=== PATIENT | female | born 1970 | race Caucasian/White ===

== ENCOUNTER → 2018-03-24 | Outpatient (CLI) | payer BC ==
--- NOTE | 2018-03-24 16:37 | CARD ---
MR#: [id number] Date of Study: 03/24/2018 Ordering Physician: HECTOR WALTERS, Referring Physician: HECTOR WALTERS, Tech: Blanquita Schuster APPROVED REPORT EXAM: Two-dimensional and M-mode echocardiogram with Doppler and color Doppler. Other Information Quality : AverageHR: 76bpm Rhythm : NSR INDICATION Mitral Valve Disease Non STEMI 2D DIMENSIONS RVDd1.9 (2.9-3.5cm)Left Atrium(2D)2.7 (1.6-4.0cm) IVSd0.7 (0.7-1.1cm)Aortic Root(2D)2.5 (2.0-3.7cm) LVDd4.0 (3.9-5.9cm)LVOT Diameter2.0 (1.8-2.4cm) PWd0.9 (0.7-1.1cm)LA Ivaplv99 (18-58mL) LVDs2.9 (2.5-4.0cm)FS (%) 27.5 % SV38.4 mlLVEF(%)60.0 (>50%) Aortic Valve AoV Peak Shawn.152.9cm/sAoV VTI31.5cm AO Peak GR.9.4mmHgLVOT Peak Shawn.140.0cm/s AO Mean GR.6mmHgAVA (VMAX)2.84cm2 Mitral Valve MV E Zwjgigmw21.5cm/sMV DECEL DILP341lh MV A Xnjsipun03.6cm/sE/A Ratio1.3 Tricuspid Valve TR P. Pnksrtcu584hv/sRAP XOBUISJV2tiVu TR Peak Gr.51teMwWKQR45loXf Pulmonary Vein S1 Nulialdq22.1cm/sD2 Bctrkvvm07.9cm/s PVa [id number] LEFT VENTRICLE The left ventricle is normal size. There is normal left ventricular wall thickness. The left ventricu lar systolic function is normal and the Ejection Fraction is 60%. There is normal LV segmental wall m otion. The left ventricular diastolic function and filling is normal for age. RIGHT VENTRICLE The right ventricle is normal size. There is normal right ventricular wall thickness. The right ventr icular systolic function is normal. ATRIA The left atrium size is normal. The right atrium size is normal. The interatrial septum is intact wit h no evidence for an atrial septal defect or patent foramen ovale as noted on 2-D or Doppler imaging. AORTIC VALVE The aortic valve is normal in structure and function. Doppler and Color Flow revealed no significant aortic regurgitation. There is no significant aortic valvular stenosis. MITRAL VALVE Mitral annular calcification is mild. The mitral valve is thickened but opens well. There is a very m ild prolapse of the posterior leaflet of the mitral valve. Doppler and Color-flow revealed trace to m ild mitral regurgitation. TRICUSPID VALVE The tricuspid valve is normal in structure and function. Doppler and Color Flow revealed trace tricus pid regurgitation. The PA pressure was estimated at 27 mmHg PULMONIC VALVE The pulmonary valve is normal in structure and function. Doppler and Color Flow revealed no pulmonic valvular regurgitation. GREAT VESSELS The aortic root is normal in size. The IVC is normal in size and collapses >50% with inspiration. PERICARDIAL EFFUSION There is no evidence of significant pericardial effusion. Critical Notification Critical Value: No <Conclusion> The left ventricular systolic function is normal and the Ejection Fraction is 60%. The left ventricular diastolic function and filling is normal for age. The left atrium size is normal. The right atrium size is normal. The aortic valve is normal in structure and function. Mitral annular calcification is mild. The mitral valve is thickened but opens well. There is a very mild prolapse of the posterior leaflet of the mitral valve. Doppler and Color-flow revealed trace to mild mitral regurgitation. Doppler and Color Flow revealed trace tricuspid regurgitation. The PA pressure was estimated at 27 m mHg The pulmonary valve is normal in structure and function. There is no evidence of significant pericardial effusion. Signed by : Hector Walters MD Electronically Approved : 03/24/2018 16:36:19
== END | disposition home or self-care (01) ==
LOC: ECHO 12:58
PROVIDERS: ATTEND Internal Medicine Cardiovascular Disease
DX: I34.8 Other nonrheumatic mitral valve disorders (principal)
CPT/HCPCS: 93306

== ENCOUNTER → 2018-04-21 | Day surgery (SDC) | payer BC ==
[~2018-04-21] MED LIST: IV RINGERS,LACTATED 1000ML 1,000 ML IV SCH; LIDOCAINE 2% PF 2ML VIAL. ONE; PROPOFOL 20 ML IV ONE
[2018-04-21 15:59] LABS: U PREG PATIENT NEGATIVE (NEG)
[2018-04-21 16:27] VITALS: BP 105/67
== END | disposition home or self-care (01) ==
LOC: ENDOS 15:05
PROVIDERS: ATTEND Internal Medicine Gastroenterology
DX: K29.50 Unspecified chronic gastritis without bleeding (principal); E78.00 Pure hypercholesterolemia, unspecified; Z88.5 Allergy status to narcotic agent; Z88.2 Allergy status to sulfonamides; Z83.3 Family history of diabetes mellitus; Z82.49 Family history of ischemic heart disease and other diseases of the circulatory system; Z79.899 Other long term (current) drug therapy; Z98.890 Other specified postprocedural states
CPT/HCPCS: 43235; 81025; J2001; J2704

== ENCOUNTER → 2018-05-14 | Outpatient (CLI) | payer BC ==
[2018-04-21 16:27] VITALS: BP 105/67
--- NOTE | 2018-05-14 10:48 | RAD ---
Abdominal ultrasound without comparison for epigastric pain. Technique an findings: Real-time grayscale and color Doppler valuation of the abdominal organs is performed. The aorta is nonaneurysmal. The IVC is patent. The liver measures 16.8 cm and is normal in size, contour, and echogenicity, with no focal parenchymal abnormalities. No intra or extrahepatic biliary ductal dilatation is seen. The common bile duct measures 4 mm in diameter. The gallbladder is fluid distended and free of any shadowing stones or sludge, gallbladder wall thickening, or pericholecystic fluid. No sonographic Alexis's sign was elicited. The pancreatic head and proximal body are normal, with the distal body and tail being poorly visualized. The spleen measures 9.3 cm and is normal in appearance as well. The right kidney measures 12.0 x 3.3 x 5.1 cm and the left measures 11.8 x 4.7 x 5.6 cm. There is no hydronephrosis or focal parenchymal abnormality of either kidney. No free or loculated fluid collections are seen within the abdomen. No abdominal masses are identified. IMPRESSION: 1. No sonographically discernible abnormality of the abdomen. Electronically signed by: Shan Wallis MD (05/14/2018 10:45 AM) [id number]
--- NOTE | 2018-05-14 17:39 | RAD ---
Radionuclide hepatobiliary scan with gallbladder ejection fraction, 05/14/2018: HISTORY: Nausea, epigastric pain Following IV injection of 5.5 mCi of technetium 99 M Choletec there was prompt uptake of the radionuclide from the blood stream by the liver. Activity is present in the bile ducts and gallbladder at 5 minutes. Initial imaging out to 1 hour showed increasing gallbladder activity without extension into the small bowel. Due to the lack of available cholecystokinin, the patient was given 8 ounces of Ensure orally for the ejection fraction portion of the exam. The subsequent images demonstrate extension of activity into the small bowel. The gallbladder ejection fraction was calculated at 58 percent. IMPRESSION: 1. Normal radionuclide hepatobiliary scan. 2. The gallbladder ejection fraction is 58 percent. Electronically signed by: Oleksandr Seo MD (05/14/2018 5:36 PM) [facility]
== END | disposition home or self-care (01) ==
LOC: US 07:10
PROVIDERS: ATTEND Internal Medicine Gastroenterology
DX: R10.13 Epigastric pain (principal)
CPT/HCPCS: 76700; 78226; 96374; 96375; A9537